=== PATIENT | male | born 1960 | race Caucasian/White ===

== ENCOUNTER → 2018-10-31 | Outpatient (CLI) | payer OTHER ==
[~2018-10-31] MED LIST: CHON250C PO; PENT100C9 PO
== END | disposition home or self-care (01) ==
LOC: RAH 10:46
PROVIDERS: ATTEND Internal Medicine Critical Care Medicine
DX: M71.22 Synovial cyst of popliteal space [Baker], left knee (principal)
CPT/HCPCS: 76882